=== PATIENT | female | born 2000 | race Caucasian/White ===

== ENCOUNTER 2024-08-18 22:27 | Emergency (ER) | payer SELFPAY ==
[~2024-08-18] VITALS: Ht 162.6 cm; Wt 65.0 kg
[2024-08-18 22:28] VITALS: O2SAT 100
[2024-08-18 23:49] VITALS: BP 114/50; PULSE 78; RESP 16; TEMP 36.78072; O2SAT 100
== END 2024-08-19 01:52 | disposition home or self-care (01) ==
LOC: ER 22:27
DX: T51.0X1A Toxic effect of ethanol, accidental (unintentional), initial encounter (principal); Y92.89 Other specified places as the place of occurrence of the external cause
CPT/HCPCS: 99283